=== PATIENT | male | born 1990 | race African-American/Black ===

== ENCOUNTER 2018-07-11 14:32 | Emergency (ER) | payer OTHER ==
[~2018-07-11] VITALS: Ht 172.7 cm; Wt 68.0 kg
[~2018-07-11 14:32] MED LIST: IBUPROFEN 600600 M1 PO; KEFLEX500 MG PO; NAPROSYN500 MG PO; NOHOMEMEDICATIONS; NORCO 5-325 TA1 EACH PO
[2018-07-11] MEDS ORDERED: IBUPROFEN 800800 M1 PO (14:35)
[2018-07-11] MEDS ORDERED: BACTRIM DS TAB1 EACH PO (15:24)
[2018-07-11 15:45] VITALS: BP 137/97
== END 2018-07-11 15:45 | disposition home or self-care (01) ==
LOC: ER 14:32
DX: L02.31 Cutaneous abscess of buttock (principal); L03.317 Cellulitis of buttock; F17.210 Nicotine dependence, cigarettes, uncomplicated

== ENCOUNTER 2019-10-20 19:25 | Emergency (ER) | payer OTHER ==
[~2019-10-20] VITALS: Ht 177.8 cm; Wt 68.0 kg
[~2019-10-20 19:25] MED LIST changes: +BACTRIM DS TAB1 EACH PO; +IBUPROFEN 800800 M1 PO
[2019-10-20 19:48] LABS: URINE BILIRUBIN NEGATIVE (Negative); URINE BLOOD NEGATIVE (Negative); URINE CLARITY CLEAR; URINE COLOR YELLOW; URINE GLUCOSE-RANDOM* NEGATIVE (Negative); URINE KETONES NEGATIVE (Negative); URINE LEUKOCYTES-REFLEX NEGATIVE (Negative); URINE NITRITE-REFLEX NEGATIVE (Negative); URINE PROTEIN (DIPSTICK) NEGATIVE (Negative)
[2019-10-20 20:50] LABS: ABSOLUTE NEUTROPHILS 5.5 thou/uL (1.4-8.2); BASOPHILS 0.3 % (0.0-2.0); HEMATOCRIT 47.2 % (42.0-52.0); HEMOGLOBIN 15.8 gm/dL (14.0-18.0); LYMPHOCYTES 29.3 % (24.0-44.0); MCH 31.2 pg (26.0-34.0); MCHC 33.5 g/dL (28.0-37.0); MCV 93.2 fL (80.0-100.0); MONOCYTES 7.5 % (1.0-8.0); PLATELET COUNT 270 thou/uL (150-400); POLYS 60.9 % (36.0-66.0); RBC 5.06 mil/uL (4.50-6.00); RDW 14.3 % (10.5-14.5)
[2019-10-20 21:08] LABS: CREATININE 0.9 mg/dL (0.7-1.3); POTASSIUM 3.3 mmol/L (3.5-5.1)
[2019-10-20 21:14] LABS: ALBUMIN 4.1 g/dL (3.4-5.0); TOTAL BILIRUBIN 0.3 mg/dL (<0.1-1.0); TOTAL PROTEIN 7.8 g/dL (6.4-8.2)
[2019-10-20] MEDS ORDERED: PHENAZOPYRIDIN200 M2 PO (21:20)
[2019-10-20 21:45] VITALS: BP 127/86
== END 2019-10-20 21:55 | disposition home or self-care (01) ==
LOC: ER 19:25
PROVIDERS: Physician Assistant
DX: R30.0 Dysuria (principal); R10.31 Right lower quadrant pain; F17.210 Nicotine dependence, cigarettes, uncomplicated

== ENCOUNTER 2020-02-06 16:50 | Emergency (ER) | payer OTHER ==
[~2020-02-06] VITALS: Ht 170.2 cm; Wt 68.0 kg
[~2020-02-06 16:50] MED LIST changes: +PHENAZOPYRIDIN200 M2 PO
[2020-02-06] MEDS ORDERED: MEDROLDOSEPACK PO (19:03)
[2020-02-06 19:08] VITALS: BP 120/61
== END 2020-02-06 19:12 | disposition home or self-care (01) ==
LOC: ER 16:50
DX: J02.9 Acute pharyngitis, unspecified (principal); F17.210 Nicotine dependence, cigarettes, uncomplicated

== ENCOUNTER 2020-11-01 13:30 | Emergency (ER) | payer OTHER ==
[~2020-11-01] VITALS: Ht 180.3 cm; Wt 68.0 kg
[~2020-11-01 13:30] MED LIST changes: +MEDROLDOSEPACK PO
[2020-11-01 14:20] LABS: URINE BLOOD NEGATIVE (Negative); URINE CLARITY CLEAR; URINE COLOR YELLOW; URINE GLUCOSE-RANDOM* NEGATIVE (Negative); URINE KETONES NEGATIVE (Negative); URINE LEUKOCYTES-REFLEX NEGATIVE (Negative); URINE NITRITE-REFLEX NEGATIVE (Negative); URINE PROTEIN (DIPSTICK) TRACE (Negative); URINE SPECIFIC GRAVITY >= 1.030 (1.005-1.035)
[2020-11-01] MEDS ORDERED: DOXYCYCLINE 10100 MG PO (14:25)
[2020-11-01 14:27] VITALS: BP 117/73
[2020-11-01 14:32] LABS: ICTOTEST (BILI CONFIRMATORY) Negative (Negative); URINE BILIRUBIN NEGATIVE (Negative)
== END 2020-11-01 14:27 | disposition home or self-care (01) ==
LOC: ER 13:30
PROVIDERS: Nurse Practitioner
DX: A64 Unspecified sexually transmitted disease (principal); F17.210 Nicotine dependence, cigarettes, uncomplicated

== ENCOUNTER 2020-12-31 15:23 | Emergency (ER) | payer OTHER ==
[~2020-12-31] VITALS: Ht 177.8 cm; Wt 68.0 kg
[~2020-12-31 15:23] MED LIST changes: +DOXYCYCLINE 10100 MG PO
[2020-12-31 15:55] VITALS: BP 132/91
[2020-12-31] MEDS ORDERED: DOXYCYCLINE 10100 MG PO (16:16)
[2020-12-31] MEDS ORDERED: FLAGYL500 M1 PO (16:16)
== END 2020-12-31 16:52 | disposition home or self-care (01) ==
LOC: ER 15:23
PROVIDERS: Emergency Medicine
DX: N34.2 Other urethritis (principal); F17.210 Nicotine dependence, cigarettes, uncomplicated

== ENCOUNTER 2021-05-20 12:18 | Emergency (ER) | payer OTHER ==
[~2021-05-20] VITALS: Ht 180.3 cm; Wt 65.8 kg
[~2021-05-20 12:18] MED LIST changes: +FLAGYL500 M1 PO
[2021-05-20 12:21] VITALS: BP 121/83
[2021-05-20] MEDS ORDERED: DOXYCYCLINE 10100 MG PO (12:49)
[2021-05-20 12:58] LABS: URINE BILIRUBIN NEGATIVE (Negative); URINE BLOOD NEGATIVE (Negative); URINE CLARITY CLEAR; URINE COLOR YELLOW; URINE GLUCOSE-RANDOM* NEGATIVE (Negative); URINE KETONES NEGATIVE (Negative); URINE LEUKOCYTES-REFLEX NEGATIVE (Negative); URINE NITRITE-REFLEX NEGATIVE (Negative); URINE PROTEIN (DIPSTICK) TRACE (Negative); URINE SPECIFIC GRAVITY 1.015 (1.005-1.035)
== END 2021-05-20 13:00 | disposition home or self-care (01) ==
LOC: ER 12:18
PROVIDERS: Student in an Organized Health Care Education/Training Program
DX: R36.9 Urethral discharge, unspecified (principal); F17.210 Nicotine dependence, cigarettes, uncomplicated